=== PATIENT | female | born 1960 | race Caucasian/White ===

== ENCOUNTER 2023-12-26 07:33 | Inpatient (IN) | payer MEDICARE, OTHER ==
[2023-12-26 09:05] LABS: #Basophils 0.1 thou/uL (0.0-0.2); #Eosinphils 0.2 thou/uL (0.0-0.7); #Monocytes 0.6 thou/uL (0.11-0.59); #Neutrophils 6.7 thou/uL (1.40-6.50); %Basophils 1.2 % (0.0-1.0); %Eosinophils 2.5 % (0.0-10.0); %Lymphocytes 17.3 % (21.0-51.0); %Monocytes 6.3 % (0.0-10.0); %Neutrophils 72.5 % (42.0-75.0); Hematocrit 39.3 % (36.0-47.0); Hemoglobin 13.4 g/dL (12.0-16.0); Mean Corpuscular HGB CONC 34.1 g/dL (32.0-36.0); Mean Corpuscular Hemoglobin 30.9 pg (27.0-31.0); Mean Corpuscular Volume 90.6 fl (78.0-98.0); Mean Platelet Volume 9.1 fL (7.4-10.4); Platelet Count 383 10x3/uL (130-400); RBC Distribution Width 14.3 % (11.5-14.5); Red Blood Cell (RBC) Count 4.34 mill/uL (4.20-5.40); White Blood Cell (WBC) Count 9.2 10x3/uL (4.8-10.8)
[2023-12-26 09:30] LABS: Acetaminophen Less than 10 mcg/mL (10.0-30.0); Alcohol Less than 10.0 mg/dL (Less than 10); Salicylate Less than 8.0 mg/dL (15.0-30.0)
[2023-12-26 09:31] LABS: ALT (SGPT) 9 U/L (8-55); AST (SGOT) 13 U/L (5-34); Albumin 4.3 g/dL (3.4-4.8); Alkaline Phosphatase 93 U/L (40-110); Anion Gap 10 mmol/L (10-20); BUN (Urea Nitrogen) 18 mg/dL (9.8-20.1); Bilirubin, Total 0.5 mg/dL (0.2-1.2); Calc. Creatinine Clearance 0 mL/min (70-130); Calcium 10.1 mg/dL (7.8-10.44); Carbon Dioxide 25 mmol/L (23-31); Chloride 104 mmol/L (98-107); Estimated GFR 43; Globulin 2.5 g/dL (2.4-3.5); Glucose 102 mg/dL (80-115); Potassium 4.6 mmol/L (3.5-5.1); Protein, Total 6.8 g/dL (5.8-8.1); Sodium 134 mmol/L (136-145)
[2023-12-26 09:33] LABS: Troponin I Less than 0.010 ng/mL (< 0.028)
[2023-12-26] MEDS ORDERED: Senokot S 8.6-50 MG TAB PO PRN (10:39)
[2023-12-26 12:49] VITALS: BMI 21.7
[2023-12-26] MEDS: Sodium Chloride 0.9% 1,000 ML IV SCH (16:15)
[2023-12-26] MEDS ORDERED: hydrOXYzine 10 MG/5 ML SYRUP UDCUP PO PRN (17:18)
[2023-12-26 18:22] LABS: Bilirubin Negative (Negative); Blood, Urine Negative (Negative); CAUTI Indications for Culture Alt mental st,lethar; Clarity Clear (Clear); Glucose, Urine (Dipstick) Normal (Negative); Ketone, Urine Negative (Negative); Leukocyte 75 Leu/uL (Negative); Nitrite Negative (Negative); Protein, Urine (Dipstick) Negative (Neg-Trace); RBC/HPF 0-3 HPF (0-3); Specific Gravity, Urine 1.007 (1.002-1.036); Squamous Epithelial 0-3 HPF (0-3); Urobilinogen Normal mg/dL (Less than 2); WBC/HPF 0-3 HPF (0-3)
[2023-12-26 18:23] LABS: Bacteria/HPF Rare-Few HPF (None Seen); Urine Culture Reflex No No
[2023-12-26] MEDS: Melatonin 3 MG TAB PO PRN (19:49)
[2023-12-26] MEDS: Famotidine 20 MG TAB PO SCH (19:49)
[2023-12-26] MEDS: QUEtiapine 200 MG TAB PO SCH (20:25)
[2023-12-27 05:29] LABS: Anion Gap 5 mmol/L (10-20); BUN (Urea Nitrogen) 14 mg/dL (9.8-20.1); Calc. Creatinine Clearance 59 mL/min (70-130); Calcium 9.2 mg/dL (7.8-10.44); Carbon Dioxide 27 mmol/L (23-31); Chloride 111 mmol/L (98-107); Estimated GFR 75; Glucose 90 mg/dL (80-115); Potassium 4.2 mmol/L (3.5-5.1); Sodium 139 mmol/L (136-145)
[2023-12-27 13:50] LABS: Vitamin D, 25 Hydroxy 6.4 ng/ml (> 30.0)
[2023-12-27] MEDS: Acetaminophen 325 MG TAB PO PRN (19:53)
[2023-12-27] MEDS: Multivit, Therapeutic 1 TAB PO SCH (19:54)
[2023-12-27] MEDS: Folic Acid 1 MG TAB PO SCH (19:55)
[2023-12-27] MEDS: Cyanocobalamin (Vitamin B-12) 1,000 MCG TAB PO SCH (19:57)
[2023-12-28] MEDS: Ondansetron ODT 4 MG TAB PO PRN (08:32)
[2023-12-28] MEDS ORDERED: Non-Formulary Item 1 EACH (Omeprazole [Omeprazole] 20 MG Capsule.Dr) PO SCH (09:00)
[2023-12-28 11:25] VITALS: TEMP 98.2
[2023-12-28 11:59] VITALS: BP 116/75
[2023-12-28] MEDS: Calcium Carbonate 600 MG + Vit D TAB PO SCH (12:00)
[2023-12-28] MEDS: Cyanocobalamin 1000 MCG/ML VIAL IM SCH (12:00)
[2023-12-28] MEDS: Ergocalciferol 1.25 MG(50,000 UNITS) CAP PO SCH (12:10)
== END 2023-12-28 13:30 | disposition home health service (06) | DRG 918 ==
LOC: ERS 07:33 → SURG A 10:28 → OBSVTOIN 12-28 09:55
PROVIDERS: ADMIT Internal Medicine; ATTEND Internal Medicine
DX: T50.991A Poisoning by other drugs, medicaments and biological substances, accidental (unintentional), initial encounter (principal); S22.31XA Fracture of one rib, right side, initial encounter for closed fracture; N17.9 Acute kidney failure, unspecified; E87.1 Hypo-osmolality and hyponatremia; F31.9 Bipolar disorder, unspecified; F43.10 Post-traumatic stress disorder, unspecified; F17.210 Nicotine dependence, cigarettes, uncomplicated; G47.30 Sleep apnea, unspecified; E55.9 Vitamin D deficiency, unspecified; N18.2 Chronic kidney disease, stage 2 (mild); Z90.89 Acquired absence of other organs; Z90.722 Acquired absence of ovaries, bilateral
CPT/HCPCS: 36415; 70450; 80048; 80053; 80178; 80307; 81001; 82306; 82607; 84443; 84484; 85025; 93005; G0378; J7050; Q0162